=== PATIENT | female | born 1980 | race Caucasian/White ===

== ENCOUNTER 2017-03-01 23:48 | Inpatient (IN) | payer OTHER ==
[~2017-03-01] VITALS: Ht 162.6 cm; Wt 98.6 kg
[2017-03-02 00:33] VITALS: BP 113/55; PULSE 62; RESP 18; TEMP 97.5; O2SAT 98
--- NOTE | 2017-03-02 00:35 | PD ---
HPI Chief Complaint: Psychiatric Symptoms Time Seen by Provider: 00:32 Travel History International Travel<30 days: No Contact w/Intl Traveler<30days: No History of Present Illness HPI 36-year-old female presents to the emergency department as a transfer from [facility] under Henderson act for psychiatric evaluation. According to the Henderson act, the patient took a handful of unknown pills as a suicide attempt are given to her by a friend. The patient states that she was given 2 pills that she took to sleep. She denies any suicidal or homicidal ideation to me. Patient denies any alcohol or drug use. She states she smokes tobacco. She reports a history of anxiety and states that she is being treated with an antibiotic for an enlarged lymph node. The patient denies any medical complaints at this time. Patient was already medically cleared at previous hospital and labs were drawn at that time. [facility] Past Medical History Arthritis: No Asthma: No Cardiovascular Problems: No Chest Pain: No Congestive Heart Failure: No COPD: No Cerebrovascular Accident: No Headaches: Yes Hepatitis: No Hiatal Hernia: No Hypertension: No Musculoskeletal: No Neurologic: No Myocardial Infarction: No Seizures: No Sleep Apnea: No Ulcer: Yes Past Surgical History Abdominal Surgery: Yes AICD: No Cardiac Surgery: No Ear Surgery: No Endocrine Surgery: No Eye Surgery: No Genitourinary Surgery: No Oral Surgery: No Pacemaker: No Thoracic Surgery: No Social History Alcohol Use: No Tobacco Use: Yes (1 PK A DAY) Substance Use: Yes (MARAQUAINE COCAINE) Allergies-Medications (Allergen,Severity, Reaction): Coded Allergies: A&D Ointment (Verified Allergy, Severe, 07/13/05) Amoxicillin (Verified Allergy, Severe, 07/13/05) Erythromycin (Verified Allergy, Severe, 07/13/05) Penicillin (Verified Allergy, Severe, 07/13/05) Review of Systems Except as stated in HPI: all other systems reviewed are Neg Physical Exam Narrative GENERAL: Well-nourished, well-developed female patient, ambulatory. Afebrile. SKIN: Focused skin assessment warm/dry. HEAD: Normocephalic. Atraumatic. EYES: No scleral icterus. No injection or drainage. NECK: Supple, trachea midline. No JVD or lymphadenopathy. CARDIOVASCULAR: Regular rate and rhythm without murmurs, gallops, or rubs. RESPIRATORY: Breath sounds equal bilaterally. No accessory muscle use. Lungs sounds clear to auscultation. GASTROINTESTINAL: Abdomen soft, non-tender, nondistended. MUSCULOSKELETAL: No cyanosis, or edema. PSYCHIATRIC: No delusional thought processes. No hallucinations. Data Data Last Documented VS Vital Signs Date Time Temp Pulse Resp B/P Pulse Ox O2 Delivery O2 Flow Rate FiO2 03/02/17 00:33 97.5 62 18 113/55 98 Orders Psych Screen (03/02/17 00:25) MDM Medical Decision Making Medical Screen Exam Complete: Yes Emergency Medical Condition: Yes Medical Record Reviewed: Yes Differential Diagnosis Depression versus anxiety versus suicidal ideation Narrative Course 36-year-old female presents to the emergency department as a transfer from [facility] for suicidal ideations. I reviewed the labs completed at previous hospital. No acute abnormality was seen. Patient has no medical complaints. She is medically cleared for psychiatric screening and disposition. Mental health screening discussed with the patient. Psychiatric screen ordered. Diagnosis Primary Impression: Depression Qualified Code: F32.9 - Depression, unspecified depression type Additional Instructions: Patient is medically cleared for psychiatric screening and disposition. Condition: Stable Josefina Hill March 02, 2017 00:35
[2017-03-02 06:15] VITALS: BP 116/86; PULSE 67; RESP 18; O2SAT 98
--- NOTE | 2017-03-02 11:48 | PD ---
History of Present Illness Chief Complaint: Psychiatric Symptoms Time Seen by Provider: 11:30 Travel History International Travel<30 Days: No Contact w/Intl Traveler<30days: No Known affected area: No Legal Status Legal Status: Henderson Act Henderson Act Comment: Patient Santiago Acted by [facility] #[id number] History of Present Illness: History of Present Illness HPI 36-year-old female, unknown to [facility] psychiatry who as per BA has a hx of depression, bipolar disorder who presents to the emergency department as a transfer from [facility] under an involuntary status . According to the report ,; Patient sates that she has nowhere to turn to, wants to just walk into traffic and end it all. States she is seeing family members that aren' t there and took pills from a stranger. As per Ed notes from [facility] she denied suicidal or homicidal ideation Current toxicology is negative. Patient has been monitored in J pod. She has come out of her room x 2 without her hospital gown and did not appear aware that she was naked. She has had intermittent episodes of yelling out and responding to internal stimuli. She is irritable and stated " get the fuck out and leave me alone". Several attempts were made to complete evaluation. At times she appears distracted by stimuli and was observed mumbling to self while I was talking to her. She reported she was released from a hospital in [place] and that she is upset because she cannot find her family. She becomes angry when questioned regarding using substances and sates " you are just like your sister ". I have asked staff to contact [facility] to obtain information. She is a patient at [facility] and was last seen in December and was prescribed Risperdal 1 mg po at . She failed to show for appt in February. I have attempted to contact her [facility] but the number has been disconnected. PFSH Past Medical History Arthritis: No Asthma: No Cardiovascular Problems: No Chest Pain: No Congestive Heart Failure: No COPD: No Cerebrovascular Accident: No Headaches: Yes Hepatitis: No Hiatal Hernia: No Hypertension: No Musculoskeletal: No Neurologic: No Myocardial Infarction: No Seizures: No Sleep Apnea: No Ulcer: Yes ?: Unknown Past Surgical History Abdominal Surgery: Yes AICD: No Cardiac Surgery: No Ear Surgery: No Endocrine Surgery: No Eye Surgery: No Genitourinary Surgery: No Neurologic Surgery: No Oral Surgery: No Pacemaker: No Thoracic Surgery: No Other Surgery: Yes (APPENDIX RT. OVARY REMOVED ) Psychiatric History Psychiatric History Hx Psychiatric Treatment: patietn at [facility] History of Inpatient Treatment: Yes ([facility]) Social History Unable to obtain. May be homeless. Hx Alcohol Use: No Hx Tobacco Use: Yes (1 PK A DAY) Hx Substance Use: Yes (MARAQUAINE COCAINE) Substance Use Type: Other (negative drug screen) Hx of Substance Use Treatment: No Family Psychiatric History Unknown Allergies-Medications (Allergen,Severity, Reaction): Coded Allergies: A&D Ointment (Verified Allergy, Severe, 07/13/05) Amoxicillin (Verified Allergy, Severe, 07/13/05) Erythromycin (Verified Allergy, Severe, 07/13/05) Penicillin (Verified Allergy, Severe, 07/13/05) Review of Systems ROS Limitations: Uncooperative, Psychotic Exam Alert: Yes [place]: Person, Place (aware she is in a hospital) Mood: Agitated, Angry Affect: Other (labile, angry) Speech: Clear, Illogical Eye Contact: Indirect Memory Intact: Comment (Not tested) Hallucinations: Auditory (Appears to be responding to internal stimuli) Delusions: Yes Delusion Type: Paranoid (appears ) Suicidal: Ideation (unable to assess) Homicidal: Ideation (unable to assess) Insight/Judgement poor. impaired. MDM Medical Decision Making Medical Record Reviewed: Yes Assessment/Plan 36 year old female under an involuntary status transferred from [facility]. Patient has been intermittently agitated, screaming out and responding to internal stimuli,paranoid, coming out of her room naked and verbally aggressive towards staff. We have been unable to obtain any other information from family members. It is unknown if she used substances we don't test for such as [place]. She reported taking unknown pills from someone. At this time she meets criteria for inpatient treatment in order to further evaluate, maintain safety and initiate treatment. Orders Psych Screen (03/02/17 00:25) Diet Regular Basic (03/02/17 Breakfast) Results Vital Signs Date Time Temp Pulse Resp B/P Pulse Ox O2 Delivery O2 Flow Rate FiO2 03/02/17 06:15 67 18 116/86 98 Room Air 03/02/17 00:33 97.5 62 18 113/55 98 Diagnosis Primary Impression: Bipolar disorder Admitting Information Admitting Physician Requests: Admit Additional Instructions: Patient is medically cleared for psychiatric screening and disposition. Condition: Stable Problem Qualifiers Primary Impression: Bipolar disorder Veronica Judge March 02, 2017 11:48
[2017-03-02] MEDS ORDERED: HALOPERIDOL 5 MG TAB PO ONE (12:00)
[2017-03-02] MEDS ORDERED: LORazepam 2 MG TAB PO ONE (12:15)
[2017-03-02] MEDS ORDERED: RISP1TAB2 PO (12:43)
[2017-03-02] MEDS ORDERED: ACETAMINOPHEN 325 MG TAB PO PRN (12:45)
[2017-03-02] MEDS ORDERED: ALUMINUM/MAGNESIUM/SIMETH 30 ML CUP PO PRN (12:45)
[2017-03-02] MEDS ORDERED: MAGNESIUM HYDROXIDE SUSP 30 ML CUP PO PRN (12:45)
[2017-03-02 13:37] VITALS: BP 101/54; PULSE 81; RESP 18; TEMP 98.1; O2SAT 98
[2017-03-03 05:47] VITALS: BP 117/83; PULSE 72; RESP 18; TEMP 98
[2017-03-03 08:13] LABS: ANION GAP 7 MEQ/L (5-15); BICARBONATE 26.8 MEQ/L (21.0-32.0); BLOOD UREA NITROGEN 13 MG/DL (7-18); CHLORIDE 105 MEQ/L (98-107); GLOMERULAR FILTRATION RATE 97 ML/MIN (>89); HDL CHOLESTEROL 42.7 MG/DL (40.0-60.0); LDL CHOLESTEROL 140 MG/DL (0-99); POTASSIUM 4.2 MEQ/L (3.5-5.1); SODIUM (NA) 139 MEQ/L (136-145)
--- NOTE | 2017-03-03 10:07 | HHI.HP ---
Provisional Diagnosis Admission Date March 02, 2017 at 12:44 [place] I. 1. Adjustment disorder with disturbance of emotions and conduct Rule-out primary psychotic disorder, such as schizophrenia Rule-out BPAD, mixed [place] II. Deferred [place] V. GAF is unclear at present Certification of Person's Competence To Provide Express and Informed Consent I have personally examined Amber Youssef , a person being served at [facility] on, March 03, 2017 10:07. Express and informed consent means consent voluntarily given in writing, by a competent person, after sufficient explanation and disclosure of the subject matter involved to enable the person to make a knowing and willful decision without any element of force, fraud, deceit, duress, or other form of constraint or coercion. This person is 18 years of age or older, is not now known to be incompetent to consent to treatment with a guardian advocate, and does not have a health care surrogate or proxy currently making medical treatment decisions. I have found this person to be one of the following: [] Competent to provide express and informed consent, as defined above, for voluntary admission to this facility and is competent to provide express and informed consent for treatment. He/she has the consistent capacity to make well reasoned, willful, and knowing decisions concerning his or her medical or mental health treatment. The person fully and consistently understands the purpose of the admission for examination/placement and is fully capable of personally exercising all rights assured [place] [] Incompetent to provide express and informed consent to voluntary admission, and this is incompetent to provide express and informed consent to treatment. The person must be transferred to involuntary status and a petition for a guardian advocate filed with the Circuit Court. [x] Refusing to provide express and informed consent to voluntary admission but is competent to provide express and informed consent for treatment. The person must be discharged or transferred to involuntary status. Form shall be completed within 24 hours of a person's arrival at the receiving facility and filed in the clinical record of each person: 1. Admitted on a voluntary basis 2. Permitted to provide express and informed consent to his/her own treatment 3. Allowed to transfer from involuntary to voluntary status 4. Prior to permitting a person to consent to his or her own treatment after having been previously found incompetent to consent to treatment. History of Present Illness Capacity: Has Capacity (to consent for meds) HPI Ms. Youssef is a 36-year-old female with a reported history of anxiety who presents in transfer from [facility]. Reviewing the documentation from [facility] it appears that the patient presented initially voluntarily but was placed under a Henderson act by the ED provider. Patient was evaluated by the psychiatric nurse practitioner here who recommended admission to the inpatient psychiatric unit. Reviewing our own electronic medical record, I see no prior psychiatric contact within our system. Patient seen and examined with counselor and nurse. Chart reviewed. Case discussed with nursing staff. On my examination today, the patient is generally uncooperative. She is quite irritable and dysphoric. She says that she went into [facility] because "they trespassed me from school and they trespassed me from my home." She says that this happened 3 months ago and she has been homeless since then. When I ask food did this to her she says "nuisance people." She denies any audiovisual hallucinations at this time but does appear somewhat internally preoccupied. She denies suicidal or homicidal ideation. She appears watchful and guarded. Patient becomes increasingly agitated during the course of our interview and is unable to tolerate extended interview and finally shouts at us to leave her alone. Past psychiatric history: Patient reports a history of anxiety. She reportedly follows at [facility], although it is not clear from her narrative whether she gets primarily inpatient or outpatient services there. She says that she was hospitalized at [facility] a few days ago. She is unsure what medications she was prescribed although the psychiatric nurse practitioner obtain collateral that she has previously been prescribed Risperdal from [facility]. She says that her nurse practitioner is Brynn Cali, but I do believe this is a case therapist at [facility]. She denies a history of suicide attempts. Review of Systems ROS Limitations: Uncooperative, Poor Historian Except as stated in HPI: all other systems reviewed are Neg Past Psych History Psychological trauma history No reported trauma history to me. Violence risk - others (6 mos) Indeterminate. Patient is presently fairly irritable. Violence risk - self (6 mos) Indeterminate. There were concerns that the patient was suicidal at outside hospital although she denies suicidal ideation now. Substance Abuse History Drugs/Alcohol past 12 months Patient declines to provide chemical dependency history. Basic urine toxicology at outside hospital was negative. Alcohol level was undetectable. Past Family Social History Coded Allergies: A&D Ointment (Verified Allergy, Severe, 07/13/05) Amoxicillin (Verified Allergy, Severe, 07/13/05) Erythromycin (Verified Allergy, Severe, 07/13/05) Penicillin (Verified Allergy, Severe, 07/13/05) Past Medical History See electronic medical record. Reported Medications Risperidone 1 Mg Tab1 Mg PO HS #30 TAB Ref 0 03/02/17 Current Medications Medications (Trade) Dose Ordered Sig/Keshia Route Start Time Stop Time Status Last Admin (Tylenol) 650 mg Q4H PRN PO 03/02/17 12:45 (Milk Of Magnesia Liq) 30 ml DAILY PRN PO 03/02/17 12:45 (Mag-Al Plus Susp Liq) 30 ml Q6H PRN PO 03/02/17 12:45 Family History Patient describes a "very exotic family history of mental illness on my mother' s side" but cannot describe this in any more detail. She is unsure if there is a family history of suicide. Social History Patient declines to provide social history beyond the fact that she is presently homeless. Patient's Strengths (min. 2) In a monitored setting. Verbally fluent. Physical Exam Physical examination was completed by the ED provider. On my examination today , the patient appears to be in no acute physical distress. No abnormal motor movements noted. Laboratories and vital signs reviewed: Vital Signs Vital Signs Date Time Temp Pulse Resp B/P Pulse Ox O2 Delivery O2 Flow Rate FiO2 03/03/17 05:47 98.0 72 18 117/83 03/02/17 13:37 98 03/02/17 06:15 Room Air Lab Results Item Value Date Time Sodium Level 139 MEQ/L 03/03/17 0717 Potassium Level 4.2 MEQ/L 03/03/17 07 Chloride Level 105 MEQ/L 03/03/17 07 Carbon Dioxide Level 26.8 MEQ/L 03/03/17716 Blood Urea Nitrogen 13 MG/DL 03/03/17 07 Creatinine 0.69 MG/DL 03/03/17 07 Random Glucose 89 MG/DL 03/03/17 07 Laboratories from outside hospital reviewed: CBC is significant for mild leukocytosis with a hemoglobin of 12.6 and mild thrombophilia with a platelet count of 431. CMP is unremarkable except for mild hyperglycemia in a nonfasting sample at 107 and mild hypocalcemia at 8.6. Urinalysis was unremarkable except for 3+ blood. Toxicology negative and alcohol level undetectable. Beta hCG negative. Mental Status Examination Patient is in hospital gown. She is fairly well groomed and appears to be maintaining basic hygiene. She is awake and alert and oriented to person and hospital at least. No evidence of delirium. No abnormal motor movements noted. Speech is somewhat terse and angry. Language and fund of knowledge seem average. Mood is dysphoric and affect is restricted and consistent with stated mood. Thought process seems fairly linear. No loosening of associations. The patient is watchful but there is no hayley delusional material. She denies audiovisual hallucinations although she does appear a little internally preoccupied. Denies suicidal or homicidal ideation at this time but was apparently verbalizing suicidal ideation at outside hospital. Insight and judgment are unclear. Assessment & Plan Problem List: (1) Adjustment disorder with mixed disturbance of emotions and conduct ICD Code: F43.25 Assessment & Plan This is a 36-year-old female with psychiatric history as detailed above who presents in transfer from outside hospital under a Henderson act. On my evaluation today, the patient presents as quite dysphoric and irritable. She is unable to tolerate extended interview. She denies suicidal or homicidal ideation at this time but was apparently verbalizing some degree of suicidal ideation at outside hospital. Per collateral obtained from As[facility] Chappell, the patient has been on Risperdal in the past. Main stressor appears to be homelessness, and it is possible that she is exaggerating her psychiatric symptomatology to obtain snf on the inpatient unit, although she does genuinely appear quite dysphoric and perhaps somewhat internally preoccupied. I will plan to admit the patient to the inpatient psychiatric unit for observation. Admit inpatient. Patient is presently not providing consent for voluntary status. I will continue to monitor under the Henderson act for now. Patient does have capacity to consent for medications. Check a CBC as well as a TSH in the morning. I will initiate Seroquel 50 mg twice daily to lessen patient's dysphoria and also internal preoccupation to the degree that it is present. Ativan as needed for anxiety, Cogentin as needed for EPS, Benadryl as needed for sleep. Vitals every shift. Counselor to see. Disposition planning. Estimated length of stay: 3-5 days. Discharge Planning Pending outcome of observation Request HC Surrog/Guard Advoc?: No (not at this time) Omar Kenny MD March 03, 2017 10:07
[2017-03-03] MEDS ORDERED: LORazepam 2 MG/ML VIAL IM PRN (13:45)
[2017-03-03] MEDS ORDERED: LORazepam 1 MG TAB PO PRN (13:45)
[2017-03-03] MEDS ORDERED: BENZTROPINE MESYLATE 1 MG TAB PO PRN (13:45)
[2017-03-03] MEDS ORDERED: BENZTROPINE MESYLATE 2 MG/2 ML VIAL IM PRN (13:45)
[2017-03-03 17:14] VITALS: BP 105/61; PULSE 72; RESP 18; TEMP 98.3; O2SAT 96
[2017-03-03] MEDS: QUEtiapine FUMARATE 25 MG TAB PO SCH (21:00)
[2017-03-03] MEDS ORDERED: diphenhydrAMINE HCL 50 MG CAP PO PRN (21:00)
[2017-03-04 06:05] VITALS: BP 109/54; PULSE 81; RESP 17; TEMP 98; O2SAT 99
[2017-03-04 08:17] LABS: HEMOGLOBIN A1a 1.1 %; HEMOGLOBIN A1b 0.8 %; HEMOGLOBIN F 0.9 %; HEMOGLOBIN LA1C 1.9 %; HEMOGLOBIN P3 4.9 %
[2017-03-04 08:41] LABS: AUTOMATED NEUTROPHIL # 5.7 TH/MM3 (1.8-7.7); BASOPHIL # 0.1 TH/MM3 (0-0.2); BASOPHIL % 0.9 % (0.0-2.0); EOSINOPHIL # 0.1 TH/MM3 (0-0.4); EOSINOPHIL % 1.6 % (0.0-4.0); HEMATOCRIT 39.9 % (35.0-46.0); HEMO FLAGS DIFF FINAL; LYMPH % 29.7 % (9.0-44.0); LYMPHOCYTE # 2.8 TH/MM3 (1.0-4.8); MEAN CELL VOLUME 86.5 FL (80.0-100.0); MEAN CORPUSCULAR HEMOGLOBIN 30.1 PG (27.0-34.0); MEAN CORPUSCULAR HGB CONC 34.8 % (32.0-36.0); MONO % 6.6 % (0.0-8.0); NEUT % 61.2 % (16.0-70.0); PLATELET COUNT 427 TH/MM3 (150-450); RED BLOOD COUNT 4.61 MIL/MM3 (4.00-5.30); RED CELL DISTRIBUTION WIDTH 13.1 % (11.6-17.2); WHITE BLOOD COUNT 9.3 TH/MM3 (4.0-11.0)
[2017-03-04] MEDS: QUEtiapine FUMARATE 25 MG TAB PO SCH (08:49)
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
[2017-03-04] MEDS ORDERED: ZITHTAB PO (16:38)
--- NOTE | 2017-03-04 17:59 | PD.CONS ---
HPI Service [facility] Hospitalists Consult Requested By Psychiatric services Reason for Consult Medical management and right ear pain Primary Care Physician Khadar Rucker Diagnoses: History of Present Illness Written by IDA Bellamy acting as scribe for Dr. Schmidt on at 17:59. This is a 36-year-old female with a past medical history significant for anxiety, depression and bipolar disorder who was placed under Henderson act while in [facility] and then transferred and admitted to inpatient psychiatric unit. Hospitalist services were consulted for medical management and evaluation of right ear pain. Patient seen and examined today. Patient reports a history of right ear pain that's been ongoing for the past month which initially presented with associated fever and chills but this has since resolved. She states she completed a course of antibiotics without much relief. She denies any associated cough or sore throat. She denies any recent fever or chills. She does admits to tobacco use of a half pack per day. Patient describes the ear pain as a throbbing sensation as well as having the feeling that something is stuck in the ear. Review of Systems Except as stated in HPI: all other systems reviewed are Neg Past Family Social History Allergies: Coded Allergies: A&D Ointment (Verified Allergy, Severe, 07/13/05) Amoxicillin (Verified Allergy, Severe, 07/13/05) Erythromycin (Verified Allergy, Severe, 07/13/05) Penicillin (Verified Allergy, Severe, 07/13/05) Past Medical History Anxiety Bipolar disorder Depression Past Surgical History Appendectomy with right oophorectomy Reported Medications Risperidone 1 Mg Tab1 Mg PO HS #30 TAB Ref 0 03/02/17 Active Ordered Medications Current Medications Medications (Trade) Dose Ordered Sig/Keshia Route Start Time Stop Time Status Last Admin (Tylenol) 650 mg Q4H PRN PO 03/02/17 12:45 (Milk Of Magnesia Liq) 30 ml DAILY PRN PO 03/02/17 12:45 (Mag-Al Plus Susp Liq) 30 ml Q6H PRN PO 03/02/17 12:45 (SEROquel) 50 mg BID PO 03/03/17 21:00 (Ativan) 1 mg Q6H PRN PO 03/03/17 13:45 (Ativan Inj) 1 mg Q6H PRN IM 03/03/17 13:45 (Cogentin) 1 mg Q12HR PRN PO 03/03/17 13:45 (Cogentin Inj) 1 mg Q12HR PRN IM 03/03/17 13:45 (Benadryl) 50 mg HS PRN PO 03/03/17 21:00 Family History Patient reports family medical history significant for diabetes and hypertension Social History Patient is homeless. She admits to tobacco use of a half pack per day. Patient reports rare alcohol use. Occasional marijuana use. When asked if she has any children patient states "there is a situation with that" but will not elaborate further. Physical Exam Vital Signs Vital Signs Date Time Temp Pulse Resp B/P Pulse Ox O2 Delivery O2 Flow Rate FiO2 03/04/17 06:05 98.0 81 17 109/54 99 Physical Exam GENERAL: This is a well-nourished, well-developed patient, in no apparent distress. Awake and alert. SKIN: No rashes, ecchymoses or lesions. Cool and dry. HEAD: Atraumatic. Normocephalic. No temporal or scalp tenderness. EYES: Pupils equal round and reactive. Extraocular motions intact. No scleral icterus. No injection or drainage. ENT: Nose without bleeding, purulent drainage or septal hematoma. Right ear NTTP. No external evidence of infection. No drainage. Ear canal normal without any appreciable canal debris, erythema or drainage. Tympanic membrane WNL. Non-erythematous, no fluid appreciated. Throat without erythema, tonsillar hypertrophy or exudate. Uvula midline. Airway patent. NECK: Trachea midline. No JVD. (+) Right-sided tender lymphadenopathy. Supple, nontender, no meningeal signs. CARDIOVASCULAR: Regular rate and rhythm without murmurs, gallops, or rubs. RESPIRATORY: Clear to auscultation. Breath sounds equal bilaterally. No wheezes , rales, or rhonchi. GASTROINTESTINAL: Abdomen soft, non-tender, nondistended. No hepato-splenomegaly , or palpable masses. No guarding. MUSCULOSKELETAL: Extremities without clubbing, cyanosis, or edema. No joint tenderness, effusion, or edema noted. No calf tenderness. NEUROLOGICAL: Awake and alert. Able to move all extremities. No focal neurologic deficits appreciated. Normal speech. Laboratory Laboratory Tests Test 03/04/17 06:45 White Blood Count 9.3 Red Blood Count 4.61 Hemoglobin 13.9 Hematocrit 39.9 Mean Corpuscular Volume 86.5 Mean Corpuscular Hemoglobin 30.1 Mean Corpuscular Hemoglobin 34.8 Concent Red Cell Distribution Width 13.1 Platelet Count 427 Mean Platelet Volume 7.4 Neutrophils (%) (Auto) 61.2 Lymphocytes (%) (Auto) 29.7 Monocytes (%) (Auto) 6.6 Eosinophils (%) (Auto) 1.6 Basophils (%) (Auto) 0.9 Neutrophils # (Auto) 5.7 Lymphocytes # (Auto) 2.8 Monocytes # (Auto) 0.6 Eosinophils # (Auto) 0.1 Basophils # (Auto) 0.1 CBC Comment DIFF FINAL Differential Comment Thyroid Stimulating Hormone 2.380 3rd Gen Result Diagram: 03/04/17 0645 03/03/17 0717 Assessment and Plan Assessment and Plan 36-year-old female with a past medical history significant for anxiety , depression and bipolar disorder who was placed under Henderson act while in [facility] and then transferred and admitted to inpatient psychiatric unit. Hospitalist services were consulted for medical management and evaluation of right ear pain. Bipolar disorder/depression/anxiety Management per psychiatric team Right-sided lymphadenopathy Possibly viral afebrile, white count within normal limits Right ear - no pathology appreciated Z pack Patient instructed to follow-up with PCP as outpatient if symptoms are persistent or worsen. Dyslipidemia Lifestyle modification Follow-up with PCP for repeat fasting lipid panel in 8 weeks Ongoing tobacco use Discussed smoking cessation/counseling offered Nicotine patches declined by patient DVT prophylaxis Encourage ambulation This note was transcribed by zoe Hatfield. I, Dr. Ruddy Salcido personally performed the history, physical exam, and medical decision making; and confirmed the accuracy of the information in the transcribed note. Authenticated by Dr. Ruddy Salcido on 03/04/17 at 17:59. Michelle Hatfield March 04, 2017 17:59 Ruddy Garza MD Mar 15, 2017 23:03
== END 2017-03-04 17:00 | disposition left against medical advice (07) | DRG 882 ==
LOC: NEPJ 23:48 → NEDA 03-02 12:44 → H270 03-02 13:20
PROVIDERS: ADMIT Psychiatry & Neurology Psychiatry; ATTEND Psychiatry & Neurology Psychiatry
DX: F43.25 Adjustment disorder with mixed disturbance of emotions and conduct (principal); F41.9 Anxiety disorder, unspecified; E78.5 Hyperlipidemia, unspecified; Z59.0 Homelessness; F17.200 Nicotine dependence, unspecified, uncomplicated; H92.01 Otalgia, right ear; F12.90 Cannabis use, unspecified, uncomplicated; R59.1 Generalized enlarged lymph nodes; Z81.8 Family history of other mental and behavioral disorders; Z88.1 Allergy status to other antibiotic agents; Z88.0 Allergy status to penicillin; Z88.8 Allergy status to other drugs, medicaments and biological substances
CPT/HCPCS: 80048; 80061; 83036; 84443; 85025; 99285